=== PATIENT | male | born 1985 | race Two or more races ===

== ENCOUNTER 2021-06-17 18:24 | Emergency (ER) | payer SELFPAY ==
[~2021-06-17] VITALS: Ht 167.6 cm; Wt 86.9 kg
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
[2021-06-17 18:34] VITALS: BP 144/95
[2021-06-17] MEDS ORDERED: IBUPROFEN 600 MG TABLET. PO ONE (18:45)
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
== END 2021-06-17 19:11 | disposition home or self-care (01) ==
LOC: ER 18:24
DX: S00.81XA Abrasion of other part of head, initial encounter (principal); M25.572 Pain in left ankle and joints of left foot; V98.8XXA Other specified transport accidents, initial encounter; Y93.89 Activity, other specified; Y92.89 Other specified places as the place of occurrence of the external cause; Y99.8 Other external cause status
CPT/HCPCS: 73590; 73610; 99284